=== PATIENT | female | born 1990 | race Caucasian/White ===

== ENCOUNTER 2018-11-26 08:41 | Emergency (ER) | payer MEDICAID ==
[2018-11-26 08:55] VITALS: RESP 20; O2SAT 98
[2018-11-26 09:51] LABS: BASO # 0.1 K/uL (0.0-0.2); BASO % 0.7 % (0.0-2.0); EOS # 0.1 K/uL (0.0-0.7); EOS % 0.5 % (0.0-4.0); HEMOGLOBIN 11.3 g/dL (11.0-16.0); LYMPH # 2.3 K/uL (1.0-4.3); LYMPH % 17.1 % (20.0-40.0); MEAN CELL VOLUME 87.7 fL (81.0-99.0); MEAN CORPUSCULAR HEMOGLOBIN 30.2 pg (27.0-31.0); MEAN CORPUSCULAR HGB CONC 34.4 g/dL (33.0-37.0); MEAN PLATELET VOLUME 8.1 fL (7.2-11.7); MONO # 0.9 K/uL (0.0-0.8); MONO % 6.5 % (0.0-10.0); NEUT % 75.2 % (50.0-75.0); NRBC % 0.1 % (0.0-2.0); RBC 3.74 Mil/uL (3.80-5.20); RED CELL DISTRIBUTION WIDTH 14.6 % (11.5-14.5); WHITE BLOOD COUNT 13.3 K/uL (4.8-10.8)
[2018-11-26 09:59] LABS: HCG,QUALITATIVE URINE POSITIVE (NEGATIVE)
[2018-11-26 10:04] LABS: ALB/GLOB RATIO 1.2 (1.0-2.1); ALBUMIN 4.2 g/dL (3.5-5.0); ALT/SGPT 20 U/L (9-52); AST/SGOT 21 U/L (14-36); BLOOD UREA NITROGEN 8 mg/dL (7-17); CALCIUM 9.6 mg/dl (8.6-10.4); GFR NON-AFRICAN AMERICAN > 60
[2018-11-26 10:04] LABS: SQUAMOUS EPITHIAL < 1 /hpf (0-5); URINE BACTERIA OCC (<OCC); URINE BILIRUBIN NEGATIVE (NEGATIVE); URINE BLOOD 3+ (NEGATIVE); URINE CLARITY Clear (Clear); URINE COLOR Red (YELLOW); URINE GLUCOSE (UA) NORMAL (Normal); URINE LEUKOCYTE ESTERASE NEG Leu/uL (Negative); URINE PROTEIN 2+ mg/dL (NEGATIVE); URINE UROBILINOGEN NORMAL mg/dL (0.2-1.0)
--- NOTE | 2018-11-26 12:25 | US ---
Date of service: 11/26/2018 HISTORY: low abd pain, preg, vag bleeding COMPARISON: None available. TECHNIQUE: Real-time transabdominal pelvic ultrasound was performed. In addition a transvaginal pelvic ultrasound was necessary to better depict pelvic anatomy. FINDINGS: UTERUS: Measures 12.0 x 5.3 x 6.2 cm. Anteverted. 0.9 x 0.6 x 1.2 cm mid posterior uterine fibroid. Heterogeneous material noted at the lower uterine segment presumably blood products. ENDOMETRIUM: Thickened heterogeneous endometrium measures approximately 2.5 cm in diameter and demonstrates evidence of vascularity. CERVIX: No cervical abnormality identified. RIGHT OVARY: Not visualized. LEFT OVARY: Not visualized. FREE FLUID: No significant free fluid noted. OTHER FINDINGS: None. IMPRESSION: No evidence of intrauterine gestational sac. If indeed the patient is based on serum beta HCG values, the sonographic findings represent either: Very early IUP; embryonic demise; ectopic gestation. Follow-up with serial quantitative serum beta HCG measurements and post OBGYN follow-up as clinically indicated, since ectopic gestation cannot be excluded based only on sonographic findings. Thickened heterogeneous endometrium measures approximately 2.5 cm in diameter and demonstrates evidence of vascularity. Correlate clinically for possibility of retained products of conception. Heterogeneous material noted at the lower uterine segment presumably blood products. Bilateral ovaries are not visualized. 0.9 x 0.6 x 1.2 cm mid posterior uterine fibroid.
--- NOTE | 2018-11-26 12:28 | C.PDOC ---
History Of Present Illness 28 y/o female,10 weeks ( , A1, and M1), presents to the ER complaining of intermittent vaginal bleeding which has been present for the past 2 days. Patient states that she has associated lower abdominal cramping. Patient reports that she had similar symptoms 2 weeks ago. At the time, she [place] [facility] [place] with normal results. Denies having fever,chills, CP,SOB, nausea, vomiting, and diarrhea. Time Seen by Provider: 11/26/18 08:57 Chief Complaint (Nursing): Abdominal Pain History Per: Patient History/Exam Limitations: no limitations Onset/Duration Of Symptoms: Days Current Symptoms Are (Timing): Still Present Severity: Moderate Past Medical History Reviewed: Historical Data, Nursing Documentation, Vital Signs Vital Signs: Last Vital Signs Temp 98.7 F 11/26/18 08:47 Pulse 95 H 11/26/18 08:47 Resp 20 11/26/18 08:47 BP 115/75 11/26/18 08:47 Pulse Ox 98 11/26/18 08:47 Primary Care Provider: Meg Shah E - Medical History PMH: Anemia, Asthma Surgical History: Family History: States: No Known Family Hx - Social History Hx Alcohol Use: Yes Hx Substance Use: No - Immunization History Hx Tetanus Toxoid Vaccination: No Hx Influenza Vaccination: No Hx Pneumococcal Vaccination: No Review Of Systems Except As Marked, All Systems Reviewed And Found Negative. Constitutional: Negative for: Fever, Chills Gastrointestinal: Positive for: Abdominal Pain. Negative for: Nausea, Vomiting Genitourinary: Positive for: Vaginal Bleeding Physical Exam - Physical Exam Appears: Non-toxic, No Acute Distress Skin: Normal Color, Warm, Dry Head: Atraumatic, Normacephalic Eye(s): bilateral: Normal Inspection Nose: Normal Oral Mucosa: Moist Neck: Supple Chest: Symmetrical Cardiovascular: Rhythm Regular Respiratory: Normal Breath Sounds, No Rales, No Rhonchi, No Wheezing Gastrointestinal/Abdominal: Soft, No Tenderness, No Guarding, No Rebound, Other (gravid) Neurological/Psych: Oriented x3, Normal Speech ED Course And Treatment - Laboratory Results Result Diagrams: 11/26/18 09:44 11/26/18 09:44 Lab Results: Total Bilirubin 0.2 mg/dL (0.2-1.3) 11/26/18 09:44 AST 21 U/L (14-36) 11/26/18 09:44 ALT 20 U/L (9-52) 11/26/18 09:44 Alkaline Phosphatase 83 U/L (38-126) 11/26/18 09:44 Total Protein 7.6 g/dL (6.3-8.3) 11/26/18 09:44 Albumin 4.2 g/dL (3.5-5.0) 11/26/18 09:44 Globulin 3.4 gm/dL (2.2-3.9) 11/26/18 09:44 Albumin/Globulin Ratio 1.2 (1.0-2.1) 11/26/18 09:44 Urine Color Red (YELLOW) 11/26/18 09:47 Urine Clarity Clear (Clear) 11/26/18 09:47 Urine pH 7.0 (5.0-8.0) 11/26/18 09:47 Ur Specific [place] 1.002 (1.003-1.030) L 11/26/18 09:47 Urine Protein 2+ mg/dL (NEGATIVE) H 11/26/18 09:47 Urine Glucose (UA) Normal mg/dL (Normal) 11/26/18 09:47 Urine Ketones Negative mg/dL (NEGATIVE) 11/26/18 09:47 Urine Blood 3+ (NEGATIVE) H 11/26/18 09:47 Urine Nitrate Negative (NEGATIVE) 11/26/18 09:47 Urine Bilirubin Negative (NEGATIVE) 11/26/18 09:47 Urine Urobilinogen Normal mg/dL (0.2-1.0) 11/26/18 09:47 Ur Leukocyte Esterase Neg Summer/uL (Negative) 11/26/18 09:47 Urine WBC (Auto) 2 /hpf (0-5) 11/26/18 09:47 Urine RBC (Auto) 36 /hpf (0-3) H 11/26/18 09:47 Ur Squamous Epith Cells < 1 /hpf (0-5) 11/26/18 09:47 Urine Bacteria Occ (<OCC) H 11/26/18 09:47 Urine HCG, Qual Positive (NEGATIVE) 11/26/18 09:47 Beta HCG, Quant 37553.00 mIU/ML 11/26/18 09:44 Urine HCG, Qual Positive (NEGATIVE) 11/26/18 09:47 O2 Sat by Pulse Oximetry: 98 (RA) Pulse Ox Interpretation: Normal - CT Scan/US US Other Rad Studies (CT/US): Read By Radiologist, Radiology Report Reviewed CT/US Interpretation: Date of service: 11/26/2018. HISTORY: low abd pain, preg, vag bleeding. COMPARISON: None available. TECHNIQUE: Real-time transabdominal pelvic ultrasound was performed. In addition a transvaginal pelvic ultrasound was necessary to better depict pelvic anatomy. FINDINGS: UTERUS: Measures 12.0 x 5.3 x 6.2 cm. Anteverted. 0.9 x 0.6 x 1.2 cm mid posterior uterine fibroid. Heterogeneous material noted at the lower uterine segment presumably blood products. ENDOMETRIUM: Thickened heterogeneous endometrium measures approximately 2.5 cm in diameter and demonstrates evidence of vascularity. CERVIX: No cervical abnormality identified. RIGHT OVARY: Not visualized. LEFT OVARY: Not visualized. FREE FLUID: No significant free fluid noted. OTHER FINDINGS: None. IMPRESSION: No evidence of intrauterine gestational sac. If indeed the patient is based on serum beta HCG values, the sonographic findings represent either: Very early IUP; embryonic demise; ectopic gestation. Follow-up with serial quantitative serum beta HCG measurements and post OBGYN follow-up as clinically indicated, since ectopic gestation cannot be excluded based only on sonographic findings. Thickened heterogeneous endometrium measures approximately 2.5 cm in diameter and demonstrates evidence of vascularity. Correlate clinically for possibility of retained products of conception. Heterogeneous material noted at the lower uterine segment presumably blood products. Bilateral ovaries are not visualized. 0.9 x 0.6 x 1.2 cm mid posterior uterine fibroid. Medical Decision Making Medical Decision Making: Plan: --Labs --UA --US-Abd/Pelv/Transvag. --Tylenol PO On re-exam, the patient reports improvement of symptoms. Lungs are CTA, heart is RRR, abdomen is soft, non-tender and tolerating PO well. Pt is ambulatory in the ED with steady gait. The patient was instructed to see the OB tomorrow as schedule without fail Disposition - Disposition Referrals: Bela Ortega MD [Staff Provider] - Disposition: HOME/ ROUTINE Disposition Time: 13:07 Condition: STABLE Additional Instructions: YOU HAVE AN APPOINTMENT TOMORROW WITH YOUR OBGYN, FOLLOW UP TOMORROW WITHOUT FAIL RETURN TO THE ED IF WORSENED PAIN, BLEEDING, DIZZINESS. Instructions: Miscarriage (DC) Forms: [id number] ([place]) - Clinical Impression Clinical Impression: Miscarriage - PA / HEMATOLOGIST / Resident Statement MD/DO has reviewed & agrees with the documentation as recorded. - Scribe Statement The provider has reviewed the documentation as recorded by the Evan Castro Provider Attestation All medical record entries made by the Kobyibe were at my direction and personally dictated by me. I have reviewed the chart and agree that the record accurately reflects my personal performance of the history, physical exam, medical decision making, and the department course for this patient. I have also personally directed, reviewed, and agree with the discharge instructions and disposition.
[2018-11-26 13:10] VITALS: BP 120/76; PULSE 93; TEMP 98.2
== END 2018-11-26 13:16 | disposition home or self-care (01) ==
LOC: C.ER 08:41
DX: O03.9 Complete or unspecified spontaneous abortion without complication (principal)